=== PATIENT | male | born 1990 | race Caucasian/White ===

== ENCOUNTER 2019-05-14 15:53 | Emergency (ER) | payer MEDICAID ==
[~2019-05-14] VITALS: Ht 177.8 cm; Wt 95.9 kg
[2019-05-14 17:15] LABS: STREP SCREEN NEGATIVE
[2019-05-14 17:28] LABS: MONOSCREEN NEGATIVE
[2019-05-14 18:30] VITALS: TEMP 102.7
[2019-05-14 18:41] LABS: HEMATOCRIT 39.1 % (42.0-52.0); HEMOGLOBIN 13.5 g/dl (13.5-18.0); MEAN CELL VOLUME 83 fl (80.0-100.0); MEAN CORPUSCULAR HEMOGLOBIN 29 pg (27.0-31.0); MEAN CORPUSCULAR HGB CONC 35 g/dl (33.0-37.0); MEAN PLATELET VOLUME 9.9 fl (7.4-10.4); PLATELET COUNT 182 K/mm3 (130-400); RED BLOOD COUNT 4.73 M/mm3 (4.20-5.60); REDCELL DISTRIBUTION WIDTH-CV 12.1 % (11.5-14.5)
[2019-05-14 18:50] LABS: ALBUMIN 3.9 gm/dL (3.5-5.0); BILIRUBIN,TOTAL 0.5 mg/dL (0.0-1.0); CALCIUM 8.9 mg/dL (8.4-10.2); CREATININE, serum 1.01 (0.66-1.25); TOTAL PROTEIN 6.6 gm/dL (6.4-8.2)
[2019-05-14 19:03] LABS: BAND 36 % (0-10); EOSINOPHIL 2 % (0-4); LYMPHOCYTE 13 % (20.0-51.0); NEUTROPHILS 40 % (42.0-75.2); PLATELET ESTIMATE NORMAL (NORMAL)
[2019-05-14 19:10] LABS: C-REACTIVE PROTEIN 14.8 mg/dL (0.0-0.9)
[2019-05-14] MEDS ORDERED: AMOXICILLIN 8751 TAB PO (20:20)
[2019-05-14 21:11] VITALS: BP 100/59; PULSE 94
== END 2019-05-14 21:11 | disposition home or self-care (01) ==
LOC: COL.ER 15:53
PROVIDERS: Nurse Practitioner; Physician Assistant
DX: J18.1 Lobar pneumonia, unspecified organism (principal); F17.210 Nicotine dependence, cigarettes, uncomplicated; Z98.52 Vasectomy status; Z88.0 Allergy status to penicillin
CPT/HCPCS: J0696; J7030

== ENCOUNTER 2019-09-09 21:16 | Emergency (ER) | payer MEDICAID ==
[~2019-09-09] VITALS: Ht 177.8 cm; Wt 86.4 kg
[~2019-09-09 21:16] MED LIST: AMOXICILLIN 8751 TAB PO
[2019-09-09 21:54] LABS: STREP SCREEN NEGATIVE
[2019-09-09] MEDS ORDERED: TAMIFLU 75MG75 MG PO (22:38)
[2019-09-09 23:45] VITALS: BP 115/66; PULSE 100; TEMP 97.6
== END 2019-09-09 23:45 | disposition home or self-care (01) ==
LOC: COL.ER 21:16
PROVIDERS: Nurse Practitioner
DX: J10.1 Influenza due to other identified influenza virus with other respiratory manifestations (principal); F17.210 Nicotine dependence, cigarettes, uncomplicated; Z88.0 Allergy status to penicillin